=== PATIENT | female | born 1995 | race Caucasian/White ===

== ENCOUNTER 2018-08-29 22:12 | Emergency (ER) | payer OTHER ==
[~2018-08-29] VITALS: Ht 162.6 cm; Wt 75.0 kg
[2018-08-29 22:47] LABS: BASO % 0.2 % (0.0-1.0); EOS # 0.1 10^3/uL (0.0-0.50); EOS % 1.1 % (0.0-3.0); HEMATOCRIT 38.4 % (36.0-47.0); HEMOGLOBIN 13.3 g/dl (12.0-15.5); LYMPH # 2.9 10^3/uL (1.5-6.5); LYMPH % 31.6 % (24.0-44.0); MEAN CORPUSCULAR HEMOGLOBIN 31.3 pg (27.0-33.0); MEAN CORPUSCULAR HGB CONC 34.6 g/dl (32.0-36.5); MEAN CORPUSCULAR VOLUME 90.4 fl (80.0-96.0); MONO # 0.7 10^3/uL (0.0-0.8); MONO % 7.7 % (0.0-5.0); NEUTROPHILS # 5.3 10^3/uL (1.8-7.7); NEUTROPHILS % 59.2 % (36.0-66.0); PLATELET COUNT, AUTOMATED 301 10^3/uL (150-450); RED BLOOD COUNT 4.25 10^6/uL (4.00-5.40)
[2018-08-29 22:52] LABS: AMORPHOUS SEDIMENT SMALL (NEGATIVE); APPEARANCE, URINE CLOUDY (CLEAR); BACTERIA, URINE AUTO 1+ (NEGATIVE); BILIRUBIN, URINE AUTO NEGATIVE (NEGATIVE); BLOOD, URINE BLOOD 3+ (NEGATIVE); COLOR, URINE YELLOW (YELLOW); GLUCOSE, URINE (UA) AUTO NEGATIVE (NEGATIVE); KETONE, URINE AUTO NEGATIVE (NEGATIVE); LEUKOCYTE ESTERASE, URINE AUTO 2+ (NEGATIVE); NITRITE, URINE AUTO NEGATIVE (NEGATIVE); PROTEIN, URINE AUTO NEGATIVE (NEGATIVE); RBC, URINE AUTO 7 /HPF (0-3); SPECIFIC GRAVITY URINE AUTO 1.012 (1.002-1.035); SQUAMOUS EPITHELIAL CELL UR AU 3 /HPF (0-6); UROBILINOGEN, URINE AUTO 0.2 mg/dL (0.0-2.0); WBC, URINE AUTO 11 /HPF (0-3)
--- NOTE | 2018-08-30 00:56 | REPVR ---
EXAM: US First Trimester, Transabdominal EXAM DATE/TIME: 08/29/2018 12:19 AM CLINICAL HISTORY: 23 years old, female; Signs and symptoms; Lmp or gestational age (in weeks): 9; Other: Bleeding after digital stimulation; ; Additional info: 9w preg, vag bleeding after digital stimulation TECHNIQUE: Real-time transabdominal obstetrical ultrasound of the maternal pelvis and a first trimester , less than 14 weeks 0 days, with image documentation. COMPARISON: No relevant prior studies available. FINDINGS: GESTATION: Gestation: Intrauterine gestational sac with pole. Heart rate: heartbeat of 169 beats per minute. BIOMETRY: [place]-Rump length: The crown-rump length is 2.3 cm suggesting an age of 9 weeks 0 days. The EDC is 04/04/2019. MATERNAL: Uterus: The uterus measures 8.6 cm in its cephalocaudad dimension and 6.5 x 7.0 cm in its AP and lateral dimensions. Cervix: Unremarkable. Right adnexa: The right ovary measures 2.4 x 2.2 x 1.6 cm and demonstrates blood flow. Left adnexa: The left ovary measures 3.3 x 2.2 x 2.2 cm and demonstrates blood flow. There is suggestion of a 16 mm cyst/follicle. Intraperitoneal: No intraperitoneal free fluid. IMPRESSION: Single live intrauterine fetus with an estimated age of 9 weeks 0 days. The EDC is 04/04/2019. Electronically signed by: Antonio Samano On 08/30/2018 00:55:57 AM
[2018-08-30 01:38] VITALS: BP 132/72
== END 2018-08-30 01:39 | disposition home or self-care (01) ==
LOC: M ED 22:12
DX: O46.91 Antepartum hemorrhage, unspecified, first trimester (principal); Z3A.09 9 weeks gestation of pregnancy